=== PATIENT | male | born 1980 | race African-American/Black ===

== ENCOUNTER 2019-04-17 03:08 | Emergency (ER) | payer MEDICAID ==
[~2019-04-17] VITALS: Ht 177.8 cm; Wt 86.0 kg
[2019-04-17 03:40] VITALS: BP 112/63
[2019-04-17 03:51] LABS: EOSINOPHILS % 2.7 % (0.0-5.0); HEMATOCRIT. 43.2 % (42.0-52.0); HEMOGLOBIN. 14.7 g/dL (14.0-18.0); LYMPHOCYTES % 44.4 % (20.0-50.0); MEAN CORPUSCULAR HEMOGLOBIN 28.8 pg (28.0-32.0); MEAN CORPUSCULAR VOLUME 84.9 fL (80.0-94.0); MEAN PLATELET VOLUME 8.9 fl (7.4-10.4); MONOCYTES % 3.6 % (2.0-8.0); NEUTROPHILS % 48.3 % (40.0-76.0); PLATELET 220 x1000/uL (130-400); RED BLOOD CELL COUNT 5.09 mill/uL (4.7-6.1); RED CELL DISTRIBUTION WIDTH 14.1 % (11.6-14.6)
[2019-04-17 03:54] LABS: CHLORIDE 113 mEq/L (98-107)
[2019-04-17 04:07] LABS: ETHANOL BLOOD 314 mg/dL
[2019-04-17] MEDS ORDERED: SODIUM CHLORIDE 0.9% 1,000 ML IV ONE (04:15)
== END 2019-04-17 05:08 | disposition home or self-care (01) ==
LOC: ER 03:08
DX: R45.851 Suicidal ideations (principal); F10.129 Alcohol abuse with intoxication, unspecified; Y90.8 Blood alcohol level of 240 mg/100 ml or more; Z91.19 Patient's noncompliance with other medical treatment and regimen; F17.210 Nicotine dependence, cigarettes, uncomplicated
CPT/HCPCS: 36415; 80053; 80320; 85025; 99283; J7030; G0480

== ENCOUNTER 2019-06-05 20:47 | Emergency (ER) | payer MEDICAID | END 2019-06-06 00:47 | disposition left against medical advice (07) | LOC: ER 20:47 | DX: F10.10 Alcohol abuse, uncomplicated (principal); Z53.21 Procedure and treatment not carried out due to patient leaving prior to being seen by health care provider ==

== ENCOUNTER 2020-01-06 12:16 | Emergency (ER) | payer MEDICAID ==
[~2020-01-06] VITALS: Ht 177.8 cm; Wt 110.0 kg
[2020-01-06 13:35] LABS: HEMATOCRIT. 44.6 % (42.0-52.0); HEMOGLOBIN. 14.8 g/dL (14.0-18.0); MEAN CORPUSCULAR VOLUME 84.5 fL (80.0-94.0); MEAN PLATELET VOLUME 8.4 fl (7.4-10.4); PLATELET 242 x1000/uL (130-400); RED BLOOD CELL COUNT 5.28 mill/uL (4.7-6.1); RED CELL DISTRIBUTION WIDTH 14.8 % (11.6-14.6)
[2020-01-06 13:44] LABS: CHLORIDE 111 mEq/L (98-107)
[2020-01-06 13:45] LABS: CLARITY URINE CLEAR (CLEAR); COLOR URINE YELLOW (YELLOW); KETONES URINE NEGATIVE (NEGATIVE); LEUKOCYTE ESTERASE URINE NEGATIVE (NEGATIVE); NITRITE URINE NEGATIVE (NEGATIVE); OCCULT BLOOD URINE TRACE (NEGATIVE); PH URINE 5.5 (4.5-8.0); PROTEIN URINE 1+ (NEGATIVE); UROBILINOGEN URINE 0.2 E.U./dL (0.2-1.0)
[2020-01-06 13:56] LABS: ETHANOL BLOOD 368 mg/dL
[2020-01-06 13:57] LABS: *AMPHETAMINES SCREEN URINE NEGATIVE (NEGATIVE); *BARBITURATES SCREEN URINE NEGATIVE (NEGATIVE); *BENZODIAZEPINES SCREEN URINE NEGATIVE (NEGATIVE); *COCAINE SCREEN URINE NEGATIVE (NEGATIVE)
[2020-01-06 13:58] LABS: METHADONE URINE SCREEN NEGATIVE (NEGATIVE); OPIATES URINE SCREEN NEGATIVE (NEGATIVE); PHENCYCLIDINE URINE SCREEN NEGATIVE (NEGATIVE)
[2020-01-06 14:00] LABS: CANNABINOID URINE SCREEN NEGATIVE (NEGATIVE)
[2020-01-06 14:05] LABS: PLATELET ESTIMATE NORMAL
[2020-01-06 14:45] VITALS: BP 123/88
== END 2020-01-06 15:15 | disposition home or self-care (01) ==
LOC: ER 12:16
DX: F10.229 Alcohol dependence with intoxication, unspecified (principal); K70.30 Alcoholic cirrhosis of liver without ascites; F99 Mental disorder, not otherwise specified; Y90.8 Blood alcohol level of 240 mg/100 ml or more
CPT/HCPCS: 36415; 80053; 80305; 80320; 81003; 85025; 99283; G0480

== ENCOUNTER 2020-01-07 09:17 | Emergency (ER) | payer MEDICAID ==
[~2020-01-07] VITALS: Ht 177.8 cm; Wt 90.0 kg
[2020-01-07] MEDS ORDERED: FOLIC ACID 1 MG, THIAMINE HCL 100 MG, MVI, ADULT NO.1 10 ML in DEXTROSE 5% WATER 1,000 ML IV ONE ×4 (09:45)
[2020-01-07] MEDS ORDERED: ONDANSETRON HCL 4MG/2ML INJ IV ONE (09:45)
[2020-01-07 10:26] LABS: BASOPHILS % 0.4 % (0.0-2.0); EOSINOPHILS % 0.5 % (0.0-5.0); HEMATOCRIT. 44.7 % (42.0-52.0); LYMPHOCYTES % 21.2 % (20.0-50.0); MEAN CORPUSCULAR HEMOGLOBIN 28.2 pg (28.0-32.0); MEAN CORPUSCULAR VOLUME 83.7 fL (80.0-94.0); MEAN PLATELET VOLUME 8.1 fl (7.4-10.4); MONOCYTES % 6.2 % (2.0-8.0); NEUTROPHILS % 71.7 % (40.0-76.0); PLATELET 251 x1000/uL (130-400); RED BLOOD CELL COUNT 5.33 mill/uL (4.7-6.1); RED CELL DISTRIBUTION WIDTH 14.7 % (11.6-14.6)
[2020-01-07 10:31] LABS: CHLORIDE 112 mEq/L (98-107)
[2020-01-07] MEDS ORDERED: THIAMINE HCL 100 MG/1 ML 2ML VIAL ONE (10:31)
[2020-01-07 10:57] LABS: ETHANOL BLOOD 403 mg/dL
[2020-01-07 11:03] LABS: CLARITY URINE CLEAR (CLEAR); COLOR URINE YELLOW (YELLOW); KETONES URINE NEGATIVE (NEGATIVE); LEUKOCYTE ESTERASE URINE NEGATIVE (NEGATIVE); NITRITE URINE NEGATIVE (NEGATIVE); OCCULT BLOOD URINE 2+ (NEGATIVE); PH URINE 5.5 (4.5-8.0); PROTEIN URINE 3+ (NEGATIVE); SPECIFIC GRAVITY URINE 1.029 (1.005-1.030)
[2020-01-07 11:53] LABS: *AMPHETAMINES SCREEN URINE NEGATIVE (NEGATIVE)
[2020-01-07 11:54] LABS: *BARBITURATES SCREEN URINE NEGATIVE (NEGATIVE); *BENZODIAZEPINES SCREEN URINE NEGATIVE (NEGATIVE); *COCAINE SCREEN URINE NEGATIVE (NEGATIVE); METHADONE URINE SCREEN NEGATIVE (NEGATIVE); OPIATES URINE SCREEN NEGATIVE (NEGATIVE); PHENCYCLIDINE URINE SCREEN NEGATIVE (NEGATIVE)
[2020-01-07 11:55] LABS: CANNABINOID URINE SCREEN NEGATIVE (NEGATIVE)
[2020-01-07] MEDS ORDERED: LORAZEPAM 2MG/ML CPJ IM NR (13:15)
[2020-01-07] MEDS ORDERED: QUETIAPINE FUMARATE 50MG TABLET PO SCH (23:00)
[2020-01-08 11:52] VITALS: BP 167/106
== END 2020-01-08 12:15 | disposition home or self-care (01) ==
LOC: ER 09:17
DX: T51.0X1A Toxic effect of ethanol, accidental (unintentional), initial encounter (principal); G92 Toxic encephalopathy; K70.30 Alcoholic cirrhosis of liver without ascites; Y90.8 Blood alcohol level of 240 mg/100 ml or more; R45.851 Suicidal ideations; Z75.1 Person awaiting admission to adequate facility elsewhere; Y92.488 Other paved roadways as the place of occurrence of the external cause
CPT/HCPCS: 36415; 70450; 71045; 80053; 80305; 80307; 80320; 80329; 81003; 84484; 85025; 93005; 96365; 96366; 96372; 96375; 99285; J2060; J2405; J3411; J3490; J7070; Z7610; G0480

== ENCOUNTER 2020-01-21 17:10 | Emergency (ER) | payer MEDICAID ==
[~2020-01-21] VITALS: Ht 177.8 cm; Wt 102.0 kg
[2020-01-21] MEDS ORDERED: HALOPERIDOL LACTATE 5MG/ML VIAL IM ONE (17:45)
[2020-01-21] MEDS ORDERED: LORAZEPAM 2MG/ML CPJ IM ONE (17:45)
[2020-01-21 17:55] LABS: BASOPHILS % 0.4 % (0.0-2.0); EOSINOPHILS % 1.2 % (0.0-5.0); HEMATOCRIT. 42.4 % (42.0-52.0); HEMOGLOBIN. 14.2 g/dL (14.0-18.0); LYMPHOCYTES % 52.2 % (20.0-50.0); MEAN CORPUSCULAR HEMOGLOBIN 28.2 pg (28.0-32.0); MEAN CORPUSCULAR VOLUME 84.4 fL (80.0-94.0); MONOCYTES % 5.2 % (2.0-8.0); PLATELET 281 x1000/uL (130-400); RED BLOOD CELL COUNT 5.02 mill/uL (4.7-6.1); RED CELL DISTRIBUTION WIDTH 14.5 % (11.6-14.6)
[2020-01-21 18:02] LABS: CHLORIDE 107 mEq/L (98-107)
[2020-01-21 18:20] LABS: ETHANOL BLOOD 461 mg/dL
[2020-01-21 20:11] LABS: CLARITY URINE CLEAR (CLEAR); COLOR URINE YELLOW (YELLOW); KETONES URINE NEGATIVE (NEGATIVE); LEUKOCYTE ESTERASE URINE NEGATIVE (NEGATIVE); NITRITE URINE NEGATIVE (NEGATIVE); OCCULT BLOOD URINE NEGATIVE (NEGATIVE); PH URINE 5.5 (4.5-8.0); PROTEIN URINE 2+ (NEGATIVE); SPECIFIC GRAVITY URINE 1.016 (1.005-1.030); UROBILINOGEN URINE 0.2 E.U./dL (0.2-1.0)
[2020-01-21 20:22] LABS: *AMPHETAMINES SCREEN URINE NEGATIVE (NEGATIVE); *BARBITURATES SCREEN URINE NEGATIVE (NEGATIVE); *BENZODIAZEPINES SCREEN URINE NEGATIVE (NEGATIVE); *COCAINE SCREEN URINE NEGATIVE (NEGATIVE); METHADONE URINE SCREEN NEGATIVE (NEGATIVE)
[2020-01-21 20:23] LABS: CANNABINOID URINE SCREEN NEGATIVE (NEGATIVE); OPIATES URINE SCREEN NEGATIVE (NEGATIVE); PHENCYCLIDINE URINE SCREEN NEGATIVE (NEGATIVE)
[2020-01-22 02:00] VITALS: BP 138/89
== END 2020-01-22 02:16 | disposition home or self-care (01) ==
LOC: ER 17:10
DX: T51.0X1A Toxic effect of ethanol, accidental (unintentional), initial encounter (principal); Y90.8 Blood alcohol level of 240 mg/100 ml or more; Z59.0 Homelessness; Y92.038 Other place in apartment as the place of occurrence of the external cause
CPT/HCPCS: 36415; 80053; 80305; 80307; 80320; 80329; 81003; 85025; 96372; 99285; J1630; J2060; G0480

== ENCOUNTER 2020-04-28 04:58 | Emergency (ER) | payer MEDICAID | END 2020-04-28 05:26 | disposition left against medical advice (07) | LOC: ER 04:58 | DX: F10.129 Alcohol abuse with intoxication, unspecified (principal); Z53.21 Procedure and treatment not carried out due to patient leaving prior to being seen by health care provider; Y90.9 Presence of alcohol in blood, level not specified ==

== ENCOUNTER 2021-09-14 01:15 | Emergency (ER) | payer MEDICAID, OTHER ==
[~2021-09-14] VITALS: Ht 180.3 cm; Wt 93.0 kg
[2021-09-14 01:23] VITALS: BP 116/64
[2021-09-14] MEDS ORDERED: SALI10LI TP (01:52)
== END 2021-09-14 03:08 | disposition home or self-care (01) ==
LOC: ER 01:25
DX: B07.0 Plantar wart (principal)
CPT/HCPCS: 99282

== ENCOUNTER 2023-02-26 09:07 | Emergency (ER) | payer OTHER ==
[~2023-02-26] VITALS: Ht 180.3 cm; Wt 88.6 kg
[~2023-02-26 09:07] MED LIST: SALI10LI TP
[2023-02-26 09:47] LABS: BASOPHILS % 0.7 % (0.0-2.0); EOSINOPHILS % 3.5 % (0.0-5.0); HEMATOCRIT. 39.8 % (42.0-52.0); HEMOGLOBIN. 13.5 g/dL (14.0-18.0); LYMPHOCYTES % 30.8 % (20.0-50.0); MEAN CORPUSCULAR HEMOGLOBIN 27.8 pg (28.0-32.0); MEAN CORPUSCULAR VOLUME 81.6 fL (80.0-94.0); MEAN PLATELET VOLUME 8.5 fl (7.4-10.4); MONOCYTES % 6.8 % (2.0-8.0); NEUTROPHILS % 58.2 % (40.0-76.0); PLATELET 227 x1000/uL (130-400); RED BLOOD CELL COUNT 4.87 mill/uL (4.7-6.1); RED CELL DISTRIBUTION WIDTH 13.8 % (11.6-14.6)
[2023-02-26 09:59] LABS: CHLORIDE 106 mEq/L (98-107)
[2023-02-26 12:04] VITALS: BP 107/62
[2023-02-26] MEDS ORDERED: PROT40 MT (12:31)
== END 2023-02-26 12:46 | disposition home or self-care (01) ==
LOC: ER 09:07
DX: K92.1 Melena (principal); Z00.00 Encounter for general adult medical examination without abnormal findings
CPT/HCPCS: 36415; 80053; 85025; 86850; 86900; 99283

== ENCOUNTER 2024-01-13 03:10 | Emergency (ER) | payer OTHER ==
[~2024-01-13] VITALS: Ht 172.7 cm; Wt 68.0 kg
[~2024-01-13 03:10] MED LIST changes: +PROT40 MT
[2024-01-13 03:15] VITALS: O2SAT 98
[2024-01-13 08:11] LABS: BASOPHILS % 0.8 % (0.0-2.0); EOSINOPHILS % 0.1 % (0.0-5.0); HEMATOCRIT. 44.5 % (42.0-52.0); HEMOGLOBIN. 14.7 g/dL (14.0-18.0); LYMPHOCYTES % 30.1 % (20.0-50.0); MEAN CORPUSCULAR HEMOGLOBIN 28.9 pg (28.0-32.0); MEAN CORPUSCULAR HGB CONC 33.1 g/dL (31.0-37.0); MEAN CORPUSCULAR VOLUME 87.5 fL (80.0-94.0); MEAN PLATELET VOLUME 7.9 fl (7.4-10.4); MONOCYTES % 4.5 % (2.0-8.0); NEUTROPHILS % 64.5 % (40.0-76.0); PLATELET 316 x1000/uL (130-400); RED BLOOD CELL COUNT 5.08 mill/uL (4.7-6.1); RED CELL DISTRIBUTION WIDTH 15.3 % (11.6-14.6); WHITE BLOOD COUNT 4.1 x1000/uL (4.5-11.0)
[2024-01-13 08:24] LABS: CHLORIDE 102 mEq/L (98-107); POTASSIUM 3.9 mEq/L (3.5-5.1); SODIUM 140 mEq/L (136-145)
[2024-01-13 08:27] LABS: CALCIUM 8.6 mg/dL (8.7-10.4); CARBON DIOXIDE 24 mEq/L (21-32)
[2024-01-13 08:32] LABS: CREATININE 0.6 mg/dL (0.6-1.3); ETHANOL BLOOD 300 mg/dL (<10); GLUCOSE 67 mg/dL (70-105); UREA NITROGEN BLOOD 11 mg/dL (9-23)
[2024-01-13 08:34] LABS: ACETAMINOPHEN < 2 ug/mL (10-30); ALANINE AMINOTRANSFERASE 56 IU/L (10-49); ALBUMIN 5.2 g/dL (3.2-4.8); ASPARTATE AMINOTRANSFERASE 63 IU/L (<34); BILIRUBIN TOTAL 0.7 mg/dL (0.1-1.0); PROTEIN TOTAL 8.3 g/dL (6.0-8.3)
[2024-01-13 10:13] LABS: *AMPHETAMINES SCREEN URINE NEGATIVE (NEGATIVE)
[2024-01-13 10:14] LABS: *BARBITURATES SCREEN URINE NEGATIVE (NEGATIVE); *COCAINE SCREEN URINE NEGATIVE (NEGATIVE); CANNABINOID URINE SCREEN PRESUMPTIVE POSITIVE (NEGATIVE); ECSTASY MDMA SCREEN URINE NEGATIVE (NEGATIVE); METHADONE URINE SCREEN NEGATIVE (NEGATIVE); OPIATES URINE SCREEN NEGATIVE (NEGATIVE); PHENCYCLIDINE URINE SCREEN NEGATIVE (NEGATIVE)
[2024-01-13 10:18] LABS: *BENZODIAZEPINES SCREEN URINE NEGATIVE (NEGATIVE)
[2024-01-14] MEDS: AMLODIPINE 5MG TABLET PO ONE ×2 (20:31→21:49)
[2024-01-14] MEDS: QUETIAPINE FUMARATE 50MG TABLET PO SCH (20:31)
[2024-01-14] MEDS: LORAZEPAM 1MG TABLET PO ONE (21:50)
[2024-01-15 03:15] VITALS: BP 140/92; PULSE 84; RESP 13; TEMP 98.3
== END 2024-01-15 03:39 ==
LOC: ER 03:10
DX: R45.851 Suicidal ideations (principal); F10.20 Alcohol dependence, uncomplicated; Z20.822 Contact with and (suspected) exposure to COVID-19; Y90.9 Presence of alcohol in blood, level not specified
CPT/HCPCS: 80053; 80305; 80307; 80329; 80320; 85025; 36415; 93005; 99285; 87426; Z7610; G0480

== ENCOUNTER 2024-04-16 17:45 | Emergency (ER) | payer OTHER ==
[~2024-04-16] VITALS: Ht 175.3 cm; Wt 85.0 kg
[2024-04-16 17:47] VITALS: O2SAT 96
[2024-04-16 18:45] VITALS: TEMP 98.1
[2024-04-16] MEDS: ONDANSETRON HCL 4MG/2ML INJ IV STA (19:01)
[2024-04-16 19:10] LABS: BASOPHILS % 0.4 % (0.0-2.0); EOSINOPHILS % 0.1 % (0.0-5.0); HEMATOCRIT. 43.5 % (42.0-52.0); HEMOGLOBIN. 14.4 g/dL (14.0-18.0); LYMPHOCYTES % 12.4 % (20.0-50.0); MEAN CORPUSCULAR HEMOGLOBIN 29.3 pg (28.0-32.0); MEAN CORPUSCULAR HGB CONC 33.1 g/dL (31.0-37.0); MEAN CORPUSCULAR VOLUME 88.5 fL (80.0-94.0); MEAN PLATELET VOLUME 8.7 fl (7.4-10.4); MONOCYTES % 6.4 % (2.0-8.0); NEUTROPHILS % 80.7 % (40.0-76.0); PLATELET 274 x1000/uL (130-400); RED BLOOD CELL COUNT 4.91 mill/uL (4.7-6.1); RED CELL DISTRIBUTION WIDTH 13.7 % (11.6-14.6)
[2024-04-16 19:19] LABS: CHLORIDE 102 mEq/L (98-107); POTASSIUM 3.5 mEq/L (3.5-5.1); SODIUM 135 mEq/L (136-145)
[2024-04-16 19:20] LABS: CARBON DIOXIDE 25 mEq/L (21-32)
[2024-04-16 19:21] LABS: CALCIUM 9.6 mg/dL (8.7-10.4)
[2024-04-16 19:25] LABS: CREATININE 0.8 mg/dL (0.6-1.3); GLUCOSE 107 mg/dL (70-105)
[2024-04-16 19:26] LABS: TROPONIN I HIGH SENSITIVITY 4 ng/L (3.0-53); UREA NITROGEN BLOOD 10 mg/dL (9-23)
[2024-04-16 19:27] LABS: ALANINE AMINOTRANSFERASE 35 IU/L (10-49); ALBUMIN 5.1 g/dL (3.2-4.8); ASPARTATE AMINOTRANSFERASE 41 IU/L (<34); BILIRUBIN DIRECT 0.4 mg/dL (<=3.0)
[2024-04-16 19:28] LABS: BILIRUBIN TOTAL 1.5 mg/dL (0.1-1.0); PROTEIN TOTAL 7.8 g/dL (6.0-8.3)
[2024-04-16 19:33] LABS: ETHANOL BLOOD < 10 mg/dL (<10)
[2024-04-16] MEDS: SODIUM CHLORIDE 0.9% 1,000 ML IV ONE (21:58)
[2024-04-16 22:00] VITALS: BP 158/101; PULSE 101; RESP 17
[2024-04-16] MEDS ORDERED: MAGNESIUM/ALUMINUM HYDROXIDE/SIMETHICONE 30ML UDC PO PRN (23:00)
[2024-04-16] MEDS ORDERED: IPRATROPIUM/ALBUTEROL 0.5-3(2.5)MG/3ML NEB HHN PRN (23:00)
[2024-04-16] MEDS ORDERED: ACETAMINOPHEN 325MG TABLET PO PRN ×2 (23:00)
[2024-04-16] MEDS ORDERED: ONDANSETRON HCL 4MG/2ML INJ IV PRN (23:00)
[2024-04-16] MEDS ORDERED: GUAIFENESIN 200MG/10ML SUGAR FREE UDC PO PRN (23:00)
[2024-04-16] MEDS ORDERED: DOCUSATE SODIUM 100MG CAPSULE PO PRN (23:00)
[2024-04-16] MEDS ORDERED: LACTATED RINGERS 1,000 ML IV ONE (23:30)
[2024-04-16 23:34] LABS: TRIGLYCERIDE 129 mg/dL (0-150)
[2024-04-16 23:35] LABS: LDL CHOLESTEROL 99 mg/dL (5-100)
[2024-04-16 23:36] LABS: CHOLESTEROL 189 mg/dL (<200); HDL CHOLESTEROL 77 mg/dL (>55); PHOSPHORUS 3.5 mg/dL (2.5-4.9)
[2024-04-16 23:39] LABS: T4 FREE 1.36 ng/dL (0.89-1.76); THYROID STIMULATING HORMONE 2.19 uIU/mL (0.55-4.78)
[2024-04-16] MEDS: PANTOPRAZOLE SODIUM 40 MG/VIAL IV SCH (23:40)
[2024-04-17] MEDS: CLONIDINE 0.1MG TABLET PO PRN (00:10)
[2024-04-17] MEDS ORDERED: ASPIRIN 81MG EC TABLET PO SCH (09:00)
== END 2024-04-17 00:30 | disposition short-term general hospital (02) ==
LOC: ER 17:45
DX: R11.10 Vomiting, unspecified (principal); R00.0 Tachycardia, unspecified; Z87.01 Personal history of pneumonia (recurrent)
CPT/HCPCS: 80061; 80076; 80048; 80320; 83036; 84439; 83690; 83735; 84100; 84443; 85025; 84484; 36415; 71045; 74176; 93005; 96361; 96374; 96375; 99285; J2405; J2470; J7030; Z7610; G0480